=== PATIENT | female | born 1960 | race Caucasian/White ===

== ENCOUNTER 2017-01-11 22:23 | Emergency (ER) | payer OTHER ==
[~2017-01-11] VITALS: Ht 170.2 cm; Wt 83.9 kg
--- NOTE | 2017-01-11 22:47 | NUR ---
HOME MEDS PT DENIES ANY HOME MEDS ON A DAILY BASIS,
--- NOTE | 2017-01-11 23:15 | ER.PDOC ---
General Chief Complaint: Fever Stated Complaint: FEVER Time seen by MD: 23:14 Source: patient Exam Limitations: no limitations History of Present Illness Initial Comments Fever on and off for 2 years Severity: moderate Associated Symptoms: fever/chills Allergies: Coded Allergies: No Known Allergies (Unverified , 01/11/17) Constitutional: see HPI Respiratory: no symptoms reported Cardiovascular: no symptoms reported Gastrointestinal: no symptoms reported Genitourinary: no symptoms reported Musculoskeletal: no symptoms reported Skin: no symptoms reported All Other Systems: Reviewed and Negative Social History Smoking: non-smoker Alcohol Use: none Physical Exam General Appearance: alert, no distress Nose: nose nml Throat: pharynx nml, airway nml Neck: nml inspection, supple Respiratory: no resp.distress, breath sounds nml Abdomen: non-tender, no organomegaly CVS: reg rate & rhythm, heart sounds nml Skin: color nml, no rash, warm/dry Extremities: non-tender, nml ROM, no pedal edema NEURO/PSYCH: oriented x 3, CN's nml as tested, motor nml, sensation nml, mood/ affect nml Results/Orders Results/Orders Laboratory Tests Test 01/11/17 00:00 01/11/17 23:24 Urine Collection Type UNKNOWN Urine Color YELLOW (YELLOW) Urine Appearance CLEAR (CLEAR) Urine Bilirubin NEGATIVE MG/DL (NEGATIVE) Urine Ketones NEGATIVE (NEGATIVE) Urine Specific [place] 1.010 (1.005-1.035) Urine pH 7 (5.0-6.0) Urine Protein NEGATIVE (NEGATIVE) Urine Urobilinogen NORMAL (NEGATIVE) Urine Nitrate NEGATIVE (NEGATIVE) Urine Leukocyte Esterase 500/uL 2+ (NEGATIVE) Urine Blood NEGATIVE (NEGATIVE) Urine RBC NONE SEEN RBC/HPF (NONE Urine WBC 10-25 WBC/HPF (0-2) Urine Squamous Epithelial Cells FEW #/HPF (FEW) Urine Bacteria RARE (NONE SEEN) Urine Glucose NORMAL (NEGATIVE) White Blood Count 8.0 10^3/uL (4.5-11.0) Red Blood Count 4.68 10^6/uL (4.00-5.20) Hemoglobin 15.2 g/dL (12.0-15.0) Hematocrit 44.0 % (36.0-46.0) Mean Corpuscular Volume 94.0 fL (78-100) Mean Corpuscular Hemoglobin 32.5 pg (26-34) Mean Corpuscular Hemoglobin Concent 34.5 g/dL (33-37) Red Cell Distribution Width 13.1 % (11.5-14.5) Platelet Count 231 10^3/uL (150-400) Mean Platelet Volume 9.3 fL (7.8-11.0) Neutrophils (%) (Auto) 71.8 % (41.0-85.0) Lymphocytes (%) (Auto) 20.2 % (24.0-44.0) Monocytes (%) (Auto) 7.0 % (5.0-12.0) Neutrophils # (Auto) 5.7 10^3/uL (1.8-7.7) Lymphocytes # (Auto) 1.6 10^3/uL (1.0-4.8) Monocytes # (Auto) 0.6 10^3/uL (0.3-0.8) Absolute Immature Granulocyte (auto 0.02 10^3 u/L (0-2) Eosinophils % 0.3 % (0.0-5.0) Basophils % 0.4 % (0.0-0.2) Basophils # 0.0 10^3/uL (0.0-0.1) Eosinophil Count 0.0 10^3/uL (0.0-0.2) Sodium Level 140 mmol/L (132-145) Potassium Level 3.9 mmol/L (3.6-5.2) Chloride Level 104.0 mmol/L (96-109) Carbon Dioxide Level 25.8 mmol/L (20.0-32) Anion Gap 14.1 Blood Urea Nitrogen 10 mg/dL (7-18) Creatinine 0.99 mg/dL (0.59-1.40) Estimated GFR () 70.5 (>/=60) BUN/Creatinine Ratio 10.0 Glucose Level 117 mg/dL (70-110) Calcium Level 9.4 mg/dL (8.4-10.5) Total Bilirubin 1.7 mg/dL (0.2-1.0) Aspartate Amino Transf (AST/SGOT) 49 U/L (0-35) Alanine Aminotransferase (ALT/SGPT) 81 U/L (12-78) Alkaline Phosphatase 90 U/L (50-136) Total Protein 7.9 g/dL (6.4-8.2) Albumin 4.0 g/dL (3.4-5.0) Globulin 3.9 Percent Immature Gran (Cell Imm) 0.30 % (0.00-0.50) Departure Time of Disposition: 00:05 Disposition: 01 HOME, SELF-CARE Impression: Primary Impression: UTI (urinary tract infection) Qualified Codes: N39.0 - Urinary tract infection, site not specified Condition: Stable Referrals: PCP,UNKNOWN (PCP) PRIMARY CARE PROVIDER Additional Instructions: Bactrim DS F/U with your PCP in 3-4 days ALFREDO HERNÁNDEZ MD Jan 11, 2017 23:15
[2017-01-11 23:26] LABS: BASOPHIL % 0.4 % (0.0-0.2); EOSINOPHIL % 0.3 % (0.0-5.0); HEMOGLOBIN 15.2 g/dL (12.0-15.0); LYMPHOCYTES # 1.6 10^3/uL (1.0-4.8); LYMPHOCYTES % 20.2 % (24.0-44.0); MEAN CELL HGB 32.5 pg (26-34); MEAN CELL HGB CONCENTRATION 34.5 g/dL (33-37); MEAN PLATELET VOLUME 9.3 fL (7.8-11.0); MONOCYTES # 0.6 10^3/uL (0.3-0.8); NEUTROPHIL # 5.7 10^3/uL (1.8-7.7); NEUTROPHILS % 71.8 % (41.0-85.0); RED CELL DISTRIBUTION WIDTH 13.1 % (11.5-14.5)
[2017-01-11 23:42] LABS: BILIRUBIN,URINE NEGATIVE (NEGATIVE); UROBILINOGEN,URINE NORMAL (NEGATIVE)
[2017-01-11 23:42] LABS: CALCIUM 9.4 mg/dL (8.4-10.5); CARBON DIOXIDE 25.8 mmol/L (20.0-32)
[2017-01-11 23:59] LABS: APPEARANCE,URINE CLEAR (CLEAR); UA COLOR YELLOW (YELLOW)
[2017-01-12] MEDS ORDERED: BACTRIM DS PO STA (00:05)
[2017-01-12] MEDS ORDERED: BACTRIM DS ONE (00:06)
== END 2017-01-12 00:15 | disposition home or self-care (01) ==
LOC: ER 22:23
DX: N39.0 Urinary tract infection, site not specified (principal)
CPT/HCPCS: 36415; 80053; 81000; 85025; 87086; 99284